=== PATIENT | male | born 1995 | race Caucasian/White ===

== ENCOUNTER 2020-10-04 14:38 | Emergency (ER) | payer BC, MEDICAID, OTHER ==
[2020-10-04 15:28] LABS: BASOPHILS % (AUTO) 0.3 %; EOSINOPHILS # (AUTO) 0.2 10^3/uL (0.0-0.7); EOSINOPHILS % (AUTO) 2.3 %; HCT - HEMATOCRIT 46.4 % (42.0-52.0); HGB - HEMOGLOBIN 15.4 g/dL (14.0-18.0); LYMPHOCYTES # (AUTO) 1.1 10^3/uL (1.5-3.5); MEAN CORPUSCULAR HEMOGLOBIN 29.2 pg (27.0-31.0); MEAN CORPUSCULAR HGB CONC 33.2 g/dL (32.0-36.0); MEAN CORPUSCULAR VOLUME 87.9 fL (80.0-94.0); MEAN PLATELET VOLUME 11.8 fL (7.4-11.4); MONOCYTES # (AUTO) 0.4 10^3/uL (0.0-1.0); MONOCYTES % (AUTO) 5.9 %; NEUTROPHILS # (AUTO) 5.4 10^3/uL (1.5-6.6); NEUTROPHILS % (AUTO) 76.4 %; PLT - PLATELET COUNT 156 10^3/uL (130-450); RED BLOOD COUNT 5.28 10^6/uL (4.70-6.10); RED CELL DISTRIBUTION WIDTH 13.1 % (12.0-15.0); WHITE BLOOD COUNT 7.1 x10^3/uL (4.8-10.8)
[2020-10-04] MEDS ORDERED: SODIUM CHLORIDE 0.9% 1,000 ML IV STA ×2 (15:29)
[2020-10-04 15:38] LABS: ALBUMIN 4.1 g/dL (3.2-5.5); ALBUMIN/GLOBULIN RATIO 1.4 (1.0-2.2); BILIRUBIN,TOTAL 1.1 mg/dL (0.2-1.0); CALCIUM 9.2 mg/dL (8.5-10.3); TOTAL PROTEIN 7.1 g/dL (6.7-8.2)
[2020-10-04] MEDS ORDERED: IBUPROFEN 600 MG TABLET PO STA (15:38)
--- NOTE | 2020-10-04 15:50 | XRAY Report ---
PROCEDURE: Chest 1 View X-Ray INDICATIONS: Chest pain TECHNIQUE: One view of the chest was acquired. COMPARISON: None FINDINGS: Surgical changes and devices: None. Lungs and pleura: No pleural effusions or pneumothorax. Lungs are clear. Mediastinum: Mediastinal contours appear normal. Heart size is normal. Bones and chest wall: No suspicious bony lesions. Overlying soft tissues appear unremarkable. IMPRESSION: No acute cardiopulmonary process demonstrated radiographically. Reviewed by: Carlos Frank MD on 10/04/2020 3:49 PM PDT Approved by: Carlos Frank MD on 10/04/2020 3:49 PM PDT Station ID: [id number]
--- NOTE | 2020-10-04 16:04 | ED Physician Documentation ---
History of Present Illness - Stated complaint Stated Complaint: FEVER,LOSS OF T & S, VOMITING,NAUSEA - Chief complaint Chief Complaint: Fever - Additonal information Additional information: 25-year-old male presents the emergency department for evaluation of cough, congestion fever sore throat and fatigue. Symptoms began about 1 week ago. He was seen at [facility] walk-in clinic yesterday and reportedly had a positive strep test. He was started on clindamycin which she has filled and taken initial doses of. However despite this he has now developed loss of taste and smell. He also began to have diarrhea today and feels excessively dehydrated. He does feel somewhat short of air. He denies any history of tobacco use. He is a social drinker. No history of hypertension or diabetes. He has not yet vaccinated for COVID-19. He does present to the ED with t of 39.1 Review of Systems Constitutional: reports: Fever, Chills, Myalgias, Fatigue Eyes: reports: Reviewed and negative Ears: reports: Reviewed and negative Nose: reports: Rhinorrhea / runny nose, Congestion Throat: reports: Reviewed and negative Cardiac: reports: Chest pain / pressure, Palpitations. denies: Pedal edema, Calf pain Respiratory: reports: Dyspnea, Cough GI: reports: Reviewed and negative : reports: Reviewed and negative Skin: reports: Reviewed and negative PD PAST MEDICAL HISTORY - Past Medical History Past Medical History: No Cardiovascular: None Respiratory: None Neuro: None Endocrine/Autoimmune: None GI: None : None HEENT: None Psych: None Musculoskeletal: None Derm: None - Past Surgical History Past Surgical History: No - Present Medications Home Medications: Ambulatory Orders Medication Instructions Recorded Confirmed Doxycycline Hyclate 100 mg PO BID #14 10/04/20 Ondansetron Odt [Zofran] 4 mg TL Q6H PRN #10 tablet 10/04/20 - Allergies Allergies/Adverse Reactions: Allergies Allergy/AdvReac Type Severity Reaction Status Date / Time amoxicillin Allergy Unknown Verified 10/04/20 15:09 azithromycin Allergy Rash Verified 10/04/20 17:57 cefixime [From Suprax] Allergy Rash Verified 10/04/20 18:00 cephalexin [From Keflex] Allergy Rash Verified 10/04/20 18:00 clarithromycin [From Biaxin] Allergy Rash Verified 10/04/20 18:00 clavulanic acid Allergy Rash Verified 10/04/20 18:00 [From Augmentin] hydrocodone Allergy Rash Verified 10/04/20 18:00 [From Hycomine (hydrocodone-PPA)] Penicillins Allergy Unknown Verified 10/04/20 15:09 phenylpropanolamine Allergy Rash Verified 10/04/20 18:00 [From Hycomine (hydrocodone-PPA)] - Social History Does the pt smoke?: No Smoking Status: Never smoker Does the pt drink ETOH?: No Does the pt have substance abuse?: No - Immunizations Immunizations are current?: Yes PD ED PE EXPANDED - General General: No acute distress, Well developed/nourished - HEENT HEENT: Atraumatic, PERRL - Neck Neck: Supple w/out meningeal sx, Adenopathy - Cardiac Cardiac: Regular Rate, Radial strong equal, Pedal strong equal, Cap refill < 2 sec. No: Murmur Present - Respiratory Respiratory: Clear to ausultation blanche. No: Distress, Labored - Abdomen Abdomen: Normal Bowel sounds. No: Tender to palpation - Extremities Extremities: Normal. No: Deformity, Tenderness - Neuro Neuro: Alert and Oriented X 3, CNII-XII intact - GCS Eye Opening: Spontaneous Motor: Obeys Commands Verbal: Oriented Total: 15 Results - Vitals Vitals: Vital Signs - 24 hr 10/04/20 10/04/20 10/04/20 15:10 15:15 15:44 Temperature 39.1 C H Heart Rate 106 H 103 H 100 Respiratory 20 18 25 H Rate Blood Pressure 113/64 104/57 L 104/67 O2 Saturation 98 98 99 10/04/20 10/04/20 16:14 17:58 Temperature 38.4 C H 38.2 C H Heart Rate 99 90 Respiratory 16 16 Rate Blood Pressure 100/50 L 105/65 O2 Saturation 99 97 Oxygen O2 Source Room air - Labs Labs: Laboratory Tests 10/04/20 10/04/20 10/04/20 15:05 15:05 15:05 WBC 7.1 RBC 5.28 Hgb 15.4 Hct 46.4 MCV 87.9 MCH 29.2 MCHC 33.2 RDW 13.1 Plt Count 156 MPV 11.8 H Neut # (Auto) 5.4 Lymph # (Auto) 1.1 L [place] # (Auto) 0.4 Eos # (Auto) 0.2 Baso # (Auto) 0.0 Absolute Nucleated RBC 0.00 Nucleated RBC % 0.0 Sodium 139 Potassium 4.0 Chloride 98 L Carbon Dioxide 28 Anion Gap 13.0 BUN 9 Creatinine 1.0 Estimated GFR (MDRD) 90 Glucose 95 Lactic Acid Calcium 9.2 Total Bilirubin 1.1 H AST 38 ALT 56 Alkaline Phosphatase 50 Total Protein 7.1 Albumin 4.1 Globulin 3.0 Albumin/Globulin Ratio 1.4 Lipase 38 Nasal Adenovirus (PCR) NOT DETECTED Nasal B. parapertussis DNA (PCR) NOT DETECTED Nasal Coronavir 229E PCR NOT DETECTED Nasal Coronavir HKU1 PCR NOT DETECTED Nasal Coronavir NL63 PCR NOT DETECTED Nasal Coronavir OC43 PCR NOT DETECTED Nasal Enterovir/Rhinovir PCR NOT DETECTED Nasal Influenza B PCR NOT DETECTED Nasal Influenza A PCR NOT DETECTED Nasal Parainfluen 1 PCR NOT DETECTED Nasal Parainfluen 2 PCR NOT DETECTED Nasal Parainfluen 3 PCR NOT DETECTED Nasal Parainfluen 4 PCR NOT DETECTED Nasal RSV (PCR) NOT DETECTED Nasal B.pertussis DNA PCR NOT DETECTED Nasal C.pneumoniae (PCR) NOT DETECTED Noe Human Metapneumo PCR NOT DETECTED Nasal M.pneumoniae (PCR) NOT DETECTED Nasal SARS-CoV-2 (PCR) DETECTED A 10/04/20 15:43 WBC RBC Hgb Hct MCV MCH MCHC RDW Plt Count MPV Neut # (Auto) Lymph # (Auto) [place] # (Auto) Eos # (Auto) Baso # (Auto) Absolute Nucleated RBC Nucleated RBC % Sodium Potassium Chloride Carbon Dioxide Anion Gap BUN Creatinine Estimated GFR (MDRD) Glucose Lactic Acid 1.7 Calcium Total Bilirubin AST ALT Alkaline Phosphatase Total Protein Albumin Globulin Albumin/Globulin Ratio Lipase Nasal Adenovirus (PCR) Nasal B. parapertussis DNA (PCR) Nasal Coronavir 229E PCR Nasal Coronavir HKU1 PCR Nasal Coronavir NL63 PCR Nasal Coronavir OC43 PCR Nasal Enterovir/Rhinovir PCR Nasal Influenza B PCR Nasal Influenza A PCR Nasal Parainfluen 1 PCR Nasal Parainfluen 2 PCR Nasal Parainfluen 3 PCR Nasal Parainfluen 4 PCR Nasal RSV (PCR) Nasal B.pertussis DNA PCR Nasal C.pneumoniae (PCR) Noe Human Metapneumo PCR Nasal M.pneumoniae (PCR) Nasal SARS-CoV-2 (PCR) - Rads (name of study) cxr Radiology: Final report received (no acute Cardiopulmonary process.), EMP read indepedently (I feel the chest x-ray is consistent with a left lower lobe and right middle lobe pneumonia.) PD MEDICAL DECISION MAKING - ED course Complexity details: reviewed results, considered differential, d/w patient ED course: 25-year-old male presents emergency department for evaluation of fevers chills myalgias now loss of taste and smell as well as diarrhea. He is not vaccinated for COVID-19. He was seen at [facility] yesterday diagnosed with strep throat and started on clindamycin. Here in the emergency department he presented with a temperature of 39.1 as well as some tachycardia. He was given 2 L of crystalloid with good improvement in his fever as well as heart rate. Screening labs showed no acute worrisome abnormalities but the respiratory PCR was positive for COVID-19. He was offered Mab therapy as he is a candidate and has accepted it. Screening chest x-ray was interpreted by the radiologist as negative however I feel that there subtle opacities in the left lower lobe as well as right middle lobe most consistent with a clinical pneumonia. Patient will be started on Doxycycline. He will also continue the clindamycin. Should be noted he has multiple drug allergies. Advised to discontinue his clindamycin. Emergent return precautions were discussed for worsening symptoms. Clinically he does appear well and does not meet the requirement for hospitalization for COVID-19. Departure - Departure Disposition: 01 Home, Self Care Clinical Impression: COVID-19 Condition: Stable Follow-Up: Ac Rivas [Primary Care Provider] - Prescriptions: Doxycycline Hyclate 100 mg PO BID #14 Ondansetron Odt [Zofran] 4 mg TL Q6H PRN #10 tablet PRN Reason: Nausea / Vomiting Comments: Corey guerrero were seen in the ER today for fatigue, body aches, fever, sore throat, diarrhea. You have tested positive for COVID-19. You were given treatment in the emergency department today called monoclonal antibodies. This is an outpatient treatment for COVID-19. The radiologist has interpreted your chest x-ray is normal however my interpretation is that you likely have a left lower lobe pneumonia. Please fill the prescription for the Doxycycline and continue the clindamycin. This will treat both pneumonia and the diagnosed strep thraot If at any point you feel that your symptoms are worsening, you are severely labored, you are dusky in color, you cannot breathe well or your oxygen saturations are less than 90% then please return to the emergency department for consideration of antiviral therapy or admission to the hospital. You must continue to remain in quarantine for at least the next 7 to 10 days. Anybody that lives with you should also be quarantining. I do encourage you to get the COVID-19 vaccine in a few weeks when you are better.
[2020-10-04 16:45] LABS: CORONAVIRUS 229E-RESP PCR NOT DETECTED; CORONAVIRUS HKU1-RESP PCR NOT DETECTED; CORONAVIRUS NL63-RESP PCR NOT DETECTED; CORONAVIRUS OC43-RESP PCR NOT DETECTED
[2020-10-04 16:46] LABS: B. PARAPERTUSSIS- RESP PCR PAN NOT DETECTED; B. PERTUSSIS- RESP PCR PANEL NOT DETECTED; C. PNEUMONIAE- RESP PCR PANEL NOT DETECTED; HUMAN METAPNEUMOVIRUS NOT DETECTED; INFLUENZA A- RESP PCR PANEL NOT DETECTED; INFLUENZA B - RESP PCR PANEL NOT DETECTED; M. PNEUMONIAE- RESP PCR PANEL NOT DETECTED; PARAINFLUENZA VIRUS 1 NOT DETECTED; PARAINFLUENZA VIRUS 2 NOT DETECTED; PARAINFLUENZA VIRUS 3 NOT DETECTED; PARAINFLUENZA VIRUS 4 NOT DETECTED; RHINOVIRUS/ENTEROVIRUS NOT DETECTED; RSV- RESP PCR PANEL NOT DETECTED; SARS-CoV-2 -RESP PCR PANEL DETECTED
[2020-10-04] MEDS ORDERED: CASIRIVIMAB/IMDEVIMAB 10 ML in SODIUM CHLORIDE 0.9% 50 ML IV ONE (17:30)
[2020-10-04 19:05] VITALS: BP 103/58
== END 2020-10-04 19:00 | disposition home or self-care (01) ==
LOC: ED 14:38
DX: U07.1 COVID-19 (principal)
CPT/HCPCS: 0202U; 36415; 71045; 80053; 83605; 83690; 85025; 87040; 96360; 96361; 99284; A9270; J7040; M0243; Q0244

== ENCOUNTER 2022-01-08 08:00 | Outpatient (CLI) | payer OTHER ==
[2022-01-08 21:32] LABS: RESPIRATORY SYNCYTIAL VIRUS Negative (Negative)
== END 2022-01-08 23:59 | disposition home or self-care (01) ==
LOC: LAB.N 08:00
PROVIDERS: ATTEND Nurse Practitioner
DX: R05.9 Cough, unspecified (principal); R09.81 Nasal congestion
CPT/HCPCS: 87280